=== PATIENT | female | born 1935 | race Asian ===

== ENCOUNTER 2016-10-24 13:15 | Observation (INO) | payer MEDICARE, OTHER ==
[2016-10-24] MEDS ORDERED: CLOPIDOGREL 75 MG TABLET PO STA (15:21)
[2016-10-24] MEDS ORDERED: CLOPIDOGREL 75 MG TABLET ONE (15:29)
[2016-10-24] MEDS ORDERED: SODIUM CHLORIDE FLUSH 0.9% 10 ML SYRINGE IVP PRN (15:53)
[2016-10-24] MEDS ORDERED: ACETAMINOPHEN 325 MG TABLET PO PRN (15:53)
[2016-10-24] MEDS ORDERED: metFORMIN 500 MG TABLET PO SCH (17:00)
[2016-10-24] MEDS: SODIUM CHLORIDE FLUSH 0.9% 10 ML SYRINGE IVP SCH (20:50)
[2016-10-24] MEDS ORDERED: ATORVASTATIN 10 MG TABLET PO SCH (21:00)
[2016-10-25] MEDS: CALCIUM CARBONATE CHEW 500 MG TABLET PO SCH ×2 (02:00→08:28)
[2016-10-25] MEDS: SODIUM CHLORIDE FLUSH 0.9% 10 ML SYRINGE IVP SCH ×2 (06:29→11:34)
[2016-10-25] MEDS ORDERED: metFORMIN 500 MG TABLET PO SCH (08:00)
[2016-10-25] MEDS ORDERED: hydroCHLOROthiazide 25 MG TABLET PO SCH (09:00)
[2016-10-25] MEDS ORDERED: LISINOPRIL 20 MG TABLET PO SCH (09:00)
[2016-10-25] MEDS ORDERED: POLYETHYLENE GLYCOL 3350 17 GM PACKET PO SCH (09:00)
[2016-10-25] MEDS ORDERED: CLOPIDOGREL 75 MG TABLET PO SCH (09:00)
[2016-10-25] MEDS ORDERED: INSULIN GLARGINE 300 UNIT/3 ML PEN SUBQ SCH (09:00)
== END 2016-10-25 14:00 | disposition home or self-care (01) ==
DX: G45.9 Transient cerebral ischemic attack, unspecified (principal); I10 Essential (primary) hypertension; E78.5 Hyperlipidemia, unspecified; E11.9 Type 2 diabetes mellitus without complications; Z79.4 Long term (current) use of insulin; Z79.84 Long term (current) use of oral hypoglycemic drugs; Z79.02 Long term (current) use of antithrombotics/antiplatelets; Z79.899 Other long term (current) drug therapy
CPT/HCPCS: 36415; 70450; 80053; 81001; 83690; 85025; 85610; 93005; 93010; 93306; 93880; 99284; 99285; A9270; G0378; J1815

== ENCOUNTER 2017-04-04 11:47 | Emergency (ER) | payer MEDICARE, OTHER ==
--- NOTE | 2017-04-04 12:06 | ED Physician Documentation ---
History of Present Illness - Stated complaint Stated Complaint: FACIAL NUMBNESS/UNABLE TO SPEAK - Additonal information Additional information: hx from pt and pt with hx TIA 10/16 and carotid surgery at [facility] this AM was fine, came out of the grocery store and said she was weak and dizzy , nearly collapsed and had slurred speech this was 20 min ago she needed a wheelchair to get out of the car but when I saw her within 5 min of arrival sx have resolved pt denies [employer] CP AP no recent illness Review of Systems Constitutional: denies: Fever, Chills Cardiac: denies: Chest pain / pressure Respiratory: denies: Dyspnea, Cough GI: denies: Abdominal Pain, Nausea, Vomiting Musculoskeletal: denies: Neck pain Neurologic: reports: Generalized weakness, Difficulty speaking, Near syncope. denies: Headache, Head injury Endocrine: denies: Easy bruising / bleeding Immunocompromised: denies: Immunocompromised PD PAST MEDICAL HISTORY - Past Medical History Cardiovascular: Hypertension Respiratory: None Neuro: None Endocrine/Autoimmune: Type 2 diabetes GI: None : None HEENT: None Psych: None Musculoskeletal: None Derm: None - Past Surgical History Past Surgical History: No - Present Medications Home Medications: Ambulatory Orders Medication Instructions Recorded Confirmed Glipizide [Glipizide Xl] 5 mg PO DAILY 10/24/16 04/04/17 Hydrochlorothiazide 25 mg PO DAILY 10/24/16 04/04/17 Insulin Glargine,Hum.rec.anlog 12 units SQ DAILY 10/24/16 04/04/17 [Lantus Solostar] Lisinopril 20 mg PO DAILY 10/24/16 04/04/17 Simvastatin 20 mg PO QPM 10/24/16 04/04/17 metFORMIN [Glucophage] 500 mg PO QDBREAKFAST 10/24/16 04/04/17 metFORMIN [Glucophage] 750 mg PO QDDINNER 10/24/16 04/04/17 Clopidogrel [Plavix] 75 mg PO DAILY #30 tablet 10/25/16 04/04/17 - Allergies Allergies/Adverse Reactions: Allergies Allergy/AdvReac Type Severity Reaction Status Date / Time penicillamine Allergy Unknown Verified 04/04/17 12:01 - Social History Does the pt smoke?: No Smoking Status: Former smoker Does the pt drink ETOH?: No Does the pt have substance abuse?: No PD ED PE NORMAL - Vitals Vital signs reviewed: Yes - General General: Alert and oriented X 3 - HEENT HEENT: PERRL, EOMI - Neck Neck: Supple, no meningeal sign, Other (L surgical scar) - Cardiac Cardiac: RRR - Respiratory Respiratory: Clear bilaterally - Derm Derm: Normal color - Extremities Extremities: No tenderness to palpate - Neuro Neuro: Alert and oriented X 3, 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, No motor deficit, No sensory deficit, Normal speech, Other (NIHSS zero now) Results - Vitals Vitals: Vital Signs - 24 hr 04/04/17 04/04/17 04/04/17 11:51 12:53 14:09 Temperature 36.1 C L 36.5 C Heart Rate 102 H 97 105 H Respiratory 16 16 21 Rate Blood Pressure 176/76 H 133/78 H 154/74 H O2 Saturation 96 99 98 04/04/17 15:01 Temperature 36.5 C Heart Rate 96 Respiratory 16 Rate Blood Pressure 153/65 H O2 Saturation 96 Oxygen O2 Source Room air - EKG (time done) 1200 Rate: Rate (enter#) Rhythm: NSR [place]: Normal Intervals: Normal [place] QRS: Normal Ischemia: Normal ST segments - Labs Labs: Laboratory Tests 04/04/17 04/04/17 04/04/17 12:05 12:05 12:05 WBC 6.2 RBC 4.00 L Hgb 12.1 Hct 37.0 MCV 92.4 MCH 30.2 MCHC 32.6 RDW 14.1 Plt Count 392 MPV 6.7 L Neut # 3.6 Lymph # 1.9 [place] # 0.5 Eos # 0.1 Baso # 0.0 Absolute Nucleated RBC 0.01 Nucleated RBC % 0.1 PT 11.1 INR 1.0 Sodium 138 Potassium 4.1 Chloride 102 Carbon Dioxide 23 Anion Gap 13.0 BUN 19 Creatinine 1.3 H Estimated GFR (MDRD) 39 L Glucose 50 L* POC Whole Bld Glucose Calcium 9.1 04/04/17 04/04/17 04/04/17 12:29 12:32 13:09 WBC RBC Hgb Hct MCV MCH MCHC RDW Plt Count MPV Neut # Lymph # [place] # Eos # Baso # Absolute Nucleated RBC Nucleated RBC % PT INR Sodium Potassium Chloride Carbon Dioxide Anion Gap BUN Creatinine Estimated GFR (MDRD) Glucose POC Whole Bld Glucose 25 L* 33 L* 59 L* Calcium 04/04/17 04/04/17 13:57 14:58 WBC RBC Hgb Hct MCV MCH MCHC RDW Plt Count MPV Neut # Lymph # [place] # Eos # Baso # Absolute Nucleated RBC Nucleated RBC % PT INR Sodium Potassium Chloride Carbon Dioxide Anion Gap BUN Creatinine Estimated GFR (MDRD) Glucose POC Whole Bld Glucose 107 H 122 H Calcium - Rads (name of study) CTH Radiology: See rad report (no acute) PD MEDICAL DECISION MAKING - ED course ED course: pt presents with stroke like sx / near syncope CTH was neg FSBS was founf to be very low sounds like pt had a small breakfast and walked on her treadmill this AM - took her usual meds but this likely caused hypoglycemia does take glipizide in addition to metformin and insulin, but watched pt for quite a while s more sx or hypoglycemia all her sx resolved with food so doubt TIA possibly TIA but she already had a full extensive wup last spring including echo and carotids and then had her L carotid operated so feel TIA unlikely and wup already done feeling better and sx likely all hypogylcemia, will dc \ Departure - Departure Disposition: Home, Self Care Clinical Impression: Hypoglycemia, Renal insufficiency Condition: Good Instructions: ED Diabetes Hypoglycemia Oral Agent Follow-Up: Jabier Wiseman MD [Primary Care Provider] - Comments: Your CT scan was fine. Your labs were fine too except low blood sugar which is better now, and mild renal insufficiency (please follow up with your PMD about that) I think all your symptoms were due to low blood sugar. I recommend you not take your glipizide until your follow up with your PMD Please monitor your blood sugar frequently for the next few days, probably should even set an alarm to check at night too. Then follow up with your PMD next week with the readings, to discuss if your medications need to be adjusted Also please get your blood pressure rechecked because it was high today
[2017-04-04 12:22] LABS: BASOPHILS % (AUTO) 0.7 %; EOSINOPHILS # (AUTO) 0.1 10^3/uL (0.0-0.7); EOSINOPHILS % (AUTO) 1.6 %; HGB - HEMOGLOBIN 12.1 g/dL (12.0-16.0); LYMPHOCYTES # (AUTO) 1.9 10^3/uL (1.5-3.5); MEAN CORPUSCULAR HEMOGLOBIN 30.2 pg (27.0-31.0); MEAN CORPUSCULAR HGB CONC 32.6 g/dL (32.0-36.0); MEAN CORPUSCULAR VOLUME 92.4 fL (81.0-99.0); MEAN PLATELET VOLUME 6.7 fL (7.9-10.8); MONOCYTES # (AUTO) 0.5 10^3/uL (0.0-1.0); NEUTROPHILS # (AUTO) 3.6 10^3/uL (1.5-6.6); NEUTROPHILS % (AUTO) 58.7 %; NUCLEATED RED BLOOD CELLS AUTO 0.1 /100WBC; RED CELL DISTRIBUTION WIDTH 14.1 % (12.0-15.0); UNCORRECTED WHITE BLOOD COUNT 6.2 x10^3/uL; WHITE BLOOD COUNT 6.2 x10^3/uL (4.8-10.8)
[2017-04-04 12:27] LABS: PT - PROTHROMBIN TIME 11.1 secs (9.9-12.6)
--- NOTE | 2017-04-04 12:30 | CT Preliminary Report ---
Exam: CT Head W/O Stroke Protocol IMPRESSION: 1. No acute intracranial abnormality is identified. 2. Parenchymal volume loss and chronic white matter changes. Remote left thalamic infarct. Critical test: Findings discussed with Dr. Gonzalez at 12:28 PM on 04/04/2017. [facility] SITE ID: [id number]
--- NOTE | 2017-04-04 12:32 | CT Report ---
EXAM: CT HEAD EXAM DATE: 04/04/2017 12:18 PM. CLINICAL HISTORY: Unable to speak X 20 min. COMPARISON: 10/24/2016. TECHNIQUE: Multiaxial CT images were obtained from the foramen magnum to the vertex. IV contrast: Non e. Reformats: Coronal. In accordance with CT protocol optimization, one or more of the following dose reduction techniques w ere utilized for this exam: automated exposure control, adjustment of mA and/or KV based on patient s ize, or use of iterative reconstructive technique. FINDINGS: Parenchyma: Parenchymal volume loss. Mild periventricular regions of low attenuation. Remote left edin lamic infarct. No evidence of an acute vascular insult or acute parenchymal hemorrhage. No midline sh ift. No mass effect. Extraaxial Spaces: Extra-axial spaces are prominent. No acute extra-axial fluid collections. Ventricles: The ventricles and cortical sulci are enlarged, consistent with age-related tissue loss. Sinuses: Imaged paranasal sinuses, orbits, and mastoids show no significant abnormality. Bones: No evidence of fracture or calvarial defect. Other: Changes are seen from bilateral lens surgery. Vascular calcifications are noted. IMPRESSION: 1. No acute intracranial abnormality is identified. 2. Parenchymal volume loss and chronic white matter changes. Remote left thalamic infarct. Critical test: Findings discussed with Dr. Gonzalez at 12:28 PM on 04/04/2017. [facility] The above findings were discussed with Carlos by Dr. Nick Bland at 12:27 hrs on 04/04/17. Referring Provider Line: [phone] SITE ID: [id number]
[2017-04-04 13:04] LABS: CALCIUM 9.1 mg/dL (8.5-10.3); CREATININE 1.3 mg/dL (0.4-1.0); POTASSIUM 4.1 mmol/L (3.5-5.0)
[2017-04-04 15:01] VITALS: BP 153/65
== END 2017-04-04 15:56 | disposition home or self-care (01) ==
LOC: ED 11:47
DX: E11.649 Type 2 diabetes mellitus with hypoglycemia without coma (principal); I49.3 Ventricular premature depolarization; Z79.4 Long term (current) use of insulin; Z86.73 Personal history of transient ischemic attack (TIA), and cerebral infarction without residual deficits; Z87.891 Personal history of nicotine dependence
CPT/HCPCS: 36415; 70450; 80048; 85025; 85610; 93005; 99283; 99285

== ENCOUNTER 2019-07-08 11:00 | Outpatient (CLI) | payer MEDICARE, OTHER | END 2019-07-08 23:59 | disposition home or self-care (01) | LOC: LAB.R 11:00 | PROVIDERS: ATTEND Physician Assistant Medical | DX: N39.0 Urinary tract infection, site not specified (principal) | CPT/HCPCS: 87086 ==

== ENCOUNTER 2021-04-13 15:38 | Outpatient (CLI) | payer MEDICARE, OTHER ==
[2021-04-13 18:32] LABS: CALCIUM 8.5 mg/dL (8.5-10.3); CREATININE 1.3 mg/dL (0.4-1.0); POTASSIUM 4.2 mmol/L (3.5-5.0)
[2021-04-13 20:25] LABS: ESTIMATED AVERAGE GLUCOSE 169 mg/dL (70-100); HEMOGLOBIN A1c% 7.5 % (4.27-6.07)
== END 2021-04-13 23:59 | disposition home or self-care (01) ==
LOC: LAB.WCP 15:38
PROVIDERS: ATTEND Physician Assistant Medical
DX: E11.9 Type 2 diabetes mellitus without complications (principal)
CPT/HCPCS: 36415; 80048; 83036